=== PATIENT | male | born 1955 | race Caucasian/White ===

== ENCOUNTER 2017-06-19 19:40 | Inpatient (IN) | payer MEDICARE, OTHER ==
[~2017-06-19] VITALS: Ht 167.6 cm; Wt 63.5 kg
[~2017-06-19 19:40] MED LIST: QUET1TAB65 PO
[2017-06-19 19:55] VITALS: BP 173/110; PULSE 61; RESP 18; TEMP 97.8; O2SAT 98
[2017-06-19 20:29] LABS: AUTOMATED NEUTROPHIL # 9.4 TH/MM3 (1.8-7.7); BASOPHIL # 0.1 TH/MM3 (0-0.2); BASOPHIL % 0.6 % (0.0-2.0); EOSINOPHIL # 0.3 TH/MM3 (0-0.4); EOSINOPHIL % 2.4 % (0.0-4.0); HEMATOCRIT 41.7 % (39.0-51.0); HEMO FLAGS DIFF FINAL; LYMPHOCYTE # 2.2 TH/MM3 (1.0-4.8); MEAN CELL VOLUME 89.3 FL (80.0-100.0); MEAN CORPUSCULAR HEMOGLOBIN 29.4 PG (27.0-34.0); MEAN CORPUSCULAR HGB CONC 32.9 % (32.0-36.0); MONO % 5.8 % (0.0-8.0); NEUT % 74.2 % (16.0-70.0); PLATELET COUNT 146 TH/MM3 (150-450); RED BLOOD COUNT 4.67 MIL/MM3 (4.50-5.90); RED CELL DISTRIBUTION WIDTH 13.6 % (11.6-17.2); WHITE BLOOD COUNT 12.7 TH/MM3 (4.0-11.0)
[2017-06-19 20:47] LABS: ANION GAP 3 MEQ/L (5-15); BICARBONATE 30.7 MEQ/L (21.0-32.0); BLOOD UREA NITROGEN 19 MG/DL (7-18); CHLORIDE 106 MEQ/L (98-107); GLOMERULAR FILTRATION RATE 100 ML/MIN (>89); POTASSIUM 4.4 MEQ/L (3.5-5.1); SODIUM (NA) 140 MEQ/L (136-145)
[2017-06-19 20:52] LABS: ALCOHOL LESS THAN 3 MG/DL (0-5)
[2017-06-19] MEDS ORDERED: RISP1 PO (20:56)
[2017-06-19] MEDS ORDERED: LITH150C PO (20:56)
[2017-06-19] MEDS ORDERED: BUSP5TAB PO (20:56)
--- NOTE | 2017-06-19 21:04 | PD ---
HPI Chief Complaint: Psychiatric Symptoms Time Seen by Provider: 20:38 Travel History International Travel<30 days: No Contact w/Intl Traveler<30days: No Traveled to known affect area: No History of Present Illness HPI 62-year-old white male presents to emergency department under [place] act by PD. Patient has a history of bipolar disorder. According to the [place] act the patient was very good becoming agitated and aggressive towards his housemates. PD placed the patient under [place] act. It is unclear whether the patient has been compliant with his medications. The patient here states that he's been taking his medications as directed. He lives in the family's a Estate home. Patient denies any suicidal or homicidal ideation. Patient states that he was upset because they were videotaping him. PFSH Past Medical History Arthritis: Yes (BACK) Asthma: Yes Autoimmune Disease: No Blood Disorders: No Bipolar Disorder: Yes Heart Rhythm Problems: Yes (PT STATES OCCURED WHEN HE HAD A NICOTINE PATCH PUT ON) Cancer: No Cardiovascular Problems: No COPD: No Cerebrovascular Accident: No Diminished Hearing: No Endocrine: No Glaucoma: Yes (BOTH) Genitourinary: No Headaches: No Hepatitis: Yes Immune Disorder: No Musculoskeletal: No Neurologic: No Psychiatric: Yes (SCHIZOPHRENIA) Reproductive: No Respiratory: No Migraines: No Schizophrenia: Yes Seizures: No Sleep Apnea: No Tetanus Vaccination: Unknown Past Surgical History Abdominal Surgery: No AICD: No Arteriovenous Shunt: No Cardiac Surgery: No Cholecystectomy: Yes Ear Surgery: No Endocrine Surgery: No Eye Surgery: No Genitourinary Surgery: No Gynecologic Surgery: No Insulin Pump: No Joint Replacement: No Oral Surgery: No Pacemaker: No Thoracic Surgery: No Social History Alcohol Use: Yes Tobacco Use: Yes Substance Use: Yes Allergies-Medications (Allergen,Severity, Reaction): Coded Allergies: diphenhydramine (Unverified Allergy, Severe, 06/19/17) penicillin G (Unverified Allergy, Severe, 06/19/17) Reported Meds & Prescriptions Reported Meds & Active Scripts Active Reported Risperdal (Risperidone) 1 Mg Tab 1 Mg PO DAILY Buspirone (Buspirone HCl) 5 Mg Tab 5 Mg PO BID [place] Carbonate 150 Mg Cap 150 Mg PO QID Review of Systems General / Constitutional: No: Fever Eyes: No: Visual changes HENT: No: Headaches Cardiovascular: No: Chest Pain or Discomfort Respiratory: No: Shortness of Breath Gastrointestinal: No: Abdominal Pain Genitourinary: No: Dysuria Musculoskeletal: Positive: Arthralgias, No: Pain Skin: No Rash Neurologic: No: Weakness Psychiatric: Positive: Mood Disorder, Substance Abuse, No: Anxiety, Depression , Suicidal Ideations, Disorder of Thought, Homicidal Ideation Endocrine: No: Polydipsia Hematologic/Lymphatic: No: Easy Bruising Physical Exam Narrative GENERAL: Well-nourished, well-developed patient. SKIN: Warm and dry. HEAD: Normocephalic and atraumatic. EYES: No scleral icterus. No injection or drainage. ENT: No nasal drainage noted. Mucous membranes pink. Airway patent. NECK: Supple, trachea midline. Moves head freely without obvious discomfort. CARDIOVASCULAR: Regular rate and rhythm without murmurs, gallops, or rubs. RESPIRATORY: Breath sounds equal bilaterally. No accessory muscle use. GASTROINTESTINAL: Abdomen soft, non-tender, nondistended. EXTREMITIES: No cyanosis or edema. BACK: Nontender without obvious deformity. No CVA tenderness. NEURO: Patient is alert and oriented. no sensorimotor deficits. Nonfocal. Normal speech. PSYCH: No delusions. No auditory or visual hallucinations. Data Data Last Documented VS Vital Signs Date Time Temp Pulse Resp B/P (MAP) Pulse Ox O2 Delivery O2 Flow Rate FiO2 06/19/17 19:55 97.8 61 18 173/110 (131) 98 Room Air Orders Orders Complete Blood Count With Diff (06/19/17 19:54) Basic Metabolic Panel (Bmp) (06/19/17 19:54) Psych Screen (06/19/17 19:54) Drug Screen, Random Urine (06/19/17 19:54) Alcohol (Ethanol) (06/19/17 19:54) [place] (Li) (06/19/17 20:14) Labs Laboratory Tests Test 06/19/17 20:00 White Blood Count 12.7 TH/MM3 Red Blood Count 4.67 MIL/MM3 Hemoglobin 13.7 GM/DL Hematocrit 41.7 % Mean Corpuscular Volume 89.3 FL Mean Corpuscular Hemoglobin 29.4 PG Mean Corpuscular Hemoglobin Concent 32.9 % Red Cell Distribution Width 13.6 % Platelet Count 146 TH/MM3 Mean Platelet Volume 7.8 FL Neutrophils (%) (Auto) 74.2 % Lymphocytes (%) (Auto) 17.0 % Monocytes (%) (Auto) 5.8 % Eosinophils (%) (Auto) 2.4 % Basophils (%) (Auto) 0.6 % Neutrophils # (Auto) 9.4 TH/MM3 Lymphocytes # (Auto) 2.2 TH/MM3 Monocytes # (Auto) 0.7 TH/MM3 Eosinophils # (Auto) 0.3 TH/MM3 Basophils # (Auto) 0.1 TH/MM3 CBC Comment DIFF FINAL Differential Comment Blood Urea Nitrogen 19 MG/DL Creatinine 0.79 MG/DL Random Glucose 102 MG/DL Calcium Level 9.0 MG/DL Sodium Level 140 MEQ/L Potassium Level 4.4 MEQ/L Chloride Level 106 MEQ/L Carbon Dioxide Level 30.7 MEQ/L Anion Gap 3 MEQ/L Estimat Glomerular Filtration Rate 100 ML/MIN Urine Opiates Screen NEG Urine Barbiturates Screen NEG Urine Amphetamines Screen NEG Urine Benzodiazepines Screen NEG [place] Level 0.5 MEQ/L Urine Cocaine Screen NEG Urine Cannabinoids Screen POS Ethyl Alcohol Level LESS THAN 3 MG/DL MDM Medical Decision Making Medical Screen Exam Complete: Yes Emergency Medical Condition: Yes Medical Record Reviewed: Yes Interpretation(s) Laboratory Tests Test 06/19/17 20:00 White Blood Count 12.7 TH/MM3 Red Blood Count 4.67 MIL/MM3 Hemoglobin 13.7 GM/DL Hematocrit 41.7 % Mean Corpuscular Volume 89.3 FL Mean Corpuscular Hemoglobin 29.4 PG Mean Corpuscular Hemoglobin Concent 32.9 % Red Cell Distribution Width 13.6 % Platelet Count 146 TH/MM3 Mean Platelet Volume 7.8 FL Neutrophils (%) (Auto) 74.2 % Lymphocytes (%) (Auto) 17.0 % Monocytes (%) (Auto) 5.8 % Eosinophils (%) (Auto) 2.4 % Basophils (%) (Auto) 0.6 % Neutrophils # (Auto) 9.4 TH/MM3 Lymphocytes # (Auto) 2.2 TH/MM3 Monocytes # (Auto) 0.7 TH/MM3 Eosinophils # (Auto) 0.3 TH/MM3 Basophils # (Auto) 0.1 TH/MM3 CBC Comment DIFF FINAL Differential Comment Blood Urea Nitrogen 19 MG/DL Creatinine 0.79 MG/DL Random Glucose 102 MG/DL Calcium Level 9.0 MG/DL Sodium Level 140 MEQ/L Potassium Level 4.4 MEQ/L Chloride Level 106 MEQ/L Carbon Dioxide Level 30.7 MEQ/L Anion Gap 3 MEQ/L Estimat Glomerular Filtration Rate 100 ML/MIN Urine Opiates Screen NEG Urine Barbiturates Screen NEG Urine Amphetamines Screen NEG Urine Benzodiazepines Screen NEG [facility] Level 0.5 MEQ/L Urine Cocaine Screen NEG Urine Cannabinoids Screen POS Ethyl Alcohol Level LESS THAN 3 MG/DL Differential Diagnosis MDM: High Differential diagnoses: Schizophrenia, schizoaffective disorder, bipolar, anxiety, depression, adjustment reaction, mood disorder NOS, ODD, depressive disorder NOS, dementia, dementia with agitation, psychosis NOS, substance induced mood disorder, DMDD, Asperger syndrome, infection,electrolyte abnormality, malingering. Narrative Course Mental health screening discussed with the patient. Psychiatric screen ordered. The patient has been medically cleared. This is medical clearance for psychiatric admission, bipolar Diagnosis Primary Impression: Medical clearance for psychiatric admission Additional Impression: bipolar Condition: Stable Danny Borjas Jun 19, 2017 21:04
[2017-06-19] MEDS ORDERED: LITH300C2 PO (22:27)
[2017-06-19] MEDS ORDERED: REME15TA PO (22:27)
[2017-06-19] MEDS ORDERED: BUSP15TA PO (22:27)
[2017-06-19] MEDS ORDERED: ALUMINUM/MAGNESIUM/SIMETH 30 ML CUP PO PRN (23:00)
[2017-06-19] MEDS ORDERED: LORazepam 2 MG/ML VIAL IM PRN (23:00)
[2017-06-19] MEDS ORDERED: MAGNESIUM HYDROXIDE SUSP 30 ML CUP PO PRN (23:00)
[2017-06-19 23:37] VITALS: BP 142/63; PULSE 58; RESP 18; O2SAT 97
[2017-06-20 00:32] VITALS: BP 174/81; PULSE 72; RESP 17; TEMP 97.9; O2SAT 97
[2017-06-20 05:49] VITALS: BP 142/70; PULSE 56; RESP 18; TEMP 97.9; O2SAT 97
[2017-06-20] MEDS: LITHIUM CARBONATE 300 MG CAP PO SCH ×2 (08:14→20:47)
[2017-06-20] MEDS: NICOTINE 21 MG/24 HR PATCH T-DERMAL SCH (08:15)
[2017-06-20 09:58] LABS: ANION GAP 6 MEQ/L (5-15); BICARBONATE 26.6 MEQ/L (21.0-32.0); BLOOD UREA NITROGEN 15 MG/DL (7-18); CHLORIDE 106 MEQ/L (98-107); GLOMERULAR FILTRATION RATE 82 ML/MIN (>89); POTASSIUM 4.5 MEQ/L (3.5-5.1); SODIUM (NA) 139 MEQ/L (136-145)
[2017-06-20 10:04] LABS: HDL CHOLESTEROL 49.8 MG/DL (40.0-60.0); LDL CHOLESTEROL 62 MG/DL (0-99)
[2017-06-20] MEDS: ARIPiprazole 5 MG TAB PO SCH (10:15)
--- NOTE | 2017-06-20 11:07 | HHI.HP ---
Provisional Diagnosis Admission Date Jun 19, 2017 at 22:37 Hope I. Polar disorder, manic episode, with psychosis vs disorder affective disorder, bipolar type Hope II. Deferred Hope III. COPD, asthma Hope IV. Poor social and family support Hope V. 45 Certification of Person's Competence To Provide Express and Informed Consent I have personally examined Marcos Christy , a person being served at [facility] [[email or web address]] on, Jun 20, 2017 10:11. Express and informed consent means consent voluntarily given in writing, by a competent person, after sufficient explanation and disclosure of the subject matter involved to enable the person to make a knowing and willful decision without any element of force, fraud, deceit, duress, or other form of constraint or coercion. This person is 18 years of age or older, is not now known to be incompetent to consent to treatment with a guardian advocate, and does not have a health care surrogate or proxy currently making medical treatment decisions. I have found this person to be one of the following: [] Competent to provide express and informed consent, as defined above, for voluntary admission to this facility and is competent to provide express and informed consent for treatment. He/she has the consistent capacity to make well reasoned, willful, and knowing decisions concerning his or her medical or mental health treatment. The person fully and consistently understands the purpose of the admission for examination/placement and is fully capable of personally exercising all rights [place] Incompetent to provide express and informed consent to voluntary admission, and this is incompetent to provide express and informed consent to treatment. The person must be transferred to involuntary status and a petition for a guardian advocate filed with the Circuit Court. [x] Refusing to provide express and informed consent to voluntary admission but is competent to provide express and informed consent for treatment. The person must be discharged or transferred to involuntary status. Form shall be completed within 24 hours of a person's arrival at the receiving facility and filed in the clinical record of each person: 1. Admitted on a voluntary basis 2. Permitted to provide express and informed consent to his/her own treatment 3. Allowed to transfer from involuntary to voluntary status 4. Prior to permitting a person to consent to his or her own treatment after having been previously found incompetent to consent to treatment. History of Present Illness Capacity: Has Capacity HPI The patient is a 62-year-old white man, domiciled alone [facility] in the family estate home, single, unemployed, supported by [facility], with psychiatric history of bipolar disorder, schizoaffective disorder, he has one hospitalization here at [place] in 2006, documentation was reviewed, patient has an established outpatient care with [facility], he is on Keyser 300 mg bid, Buspar 15 and Remeron 15 mg, no significant medical history, who presents to emergency department under [place] act by PD. According to the [place] act the patient was very good becoming agitated and aggressive towards his housemates. PD placed the patient under [place] act. It is unclear whether the patient has been compliant with his medications. The patient here states that he's been taking his medications as directed. The psychiatric evaluation at the beginning the patient is cooperative and calm, he says that he doesn't know exactly the reason he was brought to the hospital. He reports good mood, he says that he is happy today, ever, with the patient speaks up about his emotional and he becomes very labile. However, he denies depressive symptoms, he denies anhedonia, he denies hopelessness, he denies helplessness, he denies worthlessness, he denies problems with appetite, sleep or concentration, he denies homicidal ideation, he denies visual and auditory hallucinations. At some point, with the patient is confronted about documented delusions of being videotaped(in his residence, came agitated, very angry, stated that "you don't work for [facility] and you don't know what is going on with the situation" , and walked out of the room. Patient was oriented 3, no attention deficit, no fluctuation of consciousness. He reports daily use of marihuana, but denies her illicit drugs and alcohol Review of Systems Constitutional: DENIES: Diaphoretic episodes, Fatigue, Fever, Weight gain, Weight loss, Chills, Dizziness, Change in appetite, Night Sweats Endocrine: DENIES: Heat/cold intolerance, Polydipsia, Polyuria, Polyphagia Eyes: DENIES: Blurred vision, Diplopia, Eye inflammation, Eye pain, Vision loss , Photosensitivity, Double Vision Ears, nose, mouth, throat: DENIES: Tinnitus, Hearing loss, Vertigo, Nasal discharge, Oral lesions, Throat pain, Hoarseness, Ear Pain, Running Nose, Epistaxis, Sinus Pain, Toothache, Odynophagia Respiratory: DENIES: Apneas, Cough, Snoring, Wheezing, Hemoptysis, Sputum production, Shortness of breath Cardiovascular: DENIES: Chest pain, Palpitations, Syncope, Dyspnea on Exertion , PND, Lower Extremity Edema, Orthopnea, Claudication Gastrointestinal: DENIES: Abdominal pain, Black stools, Bloody stools, Constipation, Diarrhea, Nausea, Vomiting, Difficulty Swallowing, Anorexia Genitourinary: DENIES: Sexual dysfunction, Urinary frequency, Urinary incontinence, Urgency, Hematuria, Dysuria, Nocturia, Penile Discharge, Testicular Pain, Testicular Swelling Musculoskeletal: DENIES: Joint pain, Muscle aches, Stiffness, Joint Swelling, Back pain, Neck pain Integumentary: DENIES: Abnormal pigmentation, Nail changes, Pruritus, Rash Hematologic/lymphatic: DENIES: Bruising, Lymphadenopathy Immunologic/allergic: DENIES: Eczema, Urticaria Neurologic: DENIES: Abnormal gait, Headache, Localized weakness, Paresthesias, Seizures, Speech Problems, Tremor, Poor Balance Psychiatric: COMPLAINS OF: Mood changes, Agitation, Delusions, DENIES: Anxiety , Confusion, Depression, Hallucinations, Suicidal Ideation, Homicidal Ideation Past Psych History Violence risk - others (6 mos) Increased Substance Abuse History Drugs/Alcohol past 12 months Reports daily use of marijuana, denies the use of other illegal drugs, denies the use of alcohol Past Family Social History Coded Allergies: diphenhydramine (Unverified Allergy, Severe, 06/19/17) penicillin G (Unverified Allergy, Severe, 06/19/17) Reported Medications Mirtazapine (Remeron) 15 Mg Tab, 15 MG PO HS for Depression Control, #15 TAB 0 Refills 06/19/17 Buspirone (Buspirone) 15 Mg Tab, 15 MG PO HS for Anxiety, TAB 0 Refills 06/19/17 Keyser Carbonate (Keyser Carbonate) 300 Mg Cap, 300 MG PO BID, CAP 0 Refills 06/19/17 Discontinued Reported Medications Buspirone (Buspirone) 5 Mg Tab, 5 MG PO BID for Anxiety, TAB 0 Refills 06/19/17 Keyser Carbonate (Keyser Carbonate) 150 Mg Cap, 150 MG PO QID, CAP 0 Refills 06/19/17 Quetiapine Fumarate (Seroquel) 200 Mg Tab, 200 MG PO HS, 0 Refills 09/03/07 Current Medications Medications (Trade) Dose Ordered Sig/Suni Route Start Time Stop Time Status Last Admin (Ativan) 1 mg Q6H PRN PO 06/19/17 23:00 (Ativan Inj) 1 mg Q6H PRN IM 06/19/17 23:00 (Tylenol) 650 mg Q4H PRN PO 06/19/17 23:00 (Milk Of Magnesia Liq) 30 ml DAILY PRN PO 06/19/17 23:00 (Mag-Al Plus Susp Liq) 30 ml Q6H PRN PO 06/19/17 23:00 (Habitrol 21 Mg Patch.24 Hr) 1 patch DAILY T-DERMAL 06/20/17 09:00 Miscellaneous Information 1 HS T-DERMAL 06/20/17 21:00 (Keyser Carbonate) 300 mg BID PO 06/20/17 09:00 06/20/17 08:14 (Buspar) 15 mg HS PO 06/20/17 21:00 (Remeron) 15 mg HS PO 06/20/17 21:00 Family Psych History He denies family psychiatric history Social History Patient was born and raised in [place], he lives in [facility] in a state family home, unemployed, supported by [facility], Patient's Strengths (min. 2) Verbal communication, Established outpatient care in [facility] Physical Exam no tremors, no EPS, No withdrawal, No psychomotor agitation or retardation Vital Signs Vital Signs Date Time Temp Pulse Resp B/P (MAP) Pulse Ox O2 Delivery O2 Flow Rate FiO2 06/20/17 05:49 97.9 56 18 142/70 (94) 97 06/19/17 23:37 Room Air Lab Results Test 06/19/17 20:00 06/20/17 08:52 White Blood Count 12.7 TH/MM3 Red Blood Count 4.67 MIL/MM3 Hemoglobin 13.7 GM/DL Hematocrit 41.7 % Mean Corpuscular Volume 89.3 FL Mean Corpuscular Hemoglobin 29.4 PG Mean Corpuscular Hemoglobin Concent 32.9 % Red Cell Distribution Width 13.6 % Platelet Count 146 TH/MM3 Mean Platelet Volume 7.8 FL Neutrophils (%) (Auto) 74.2 % Lymphocytes (%) (Auto) 17.0 % Monocytes (%) (Auto) 5.8 % Eosinophils (%) (Auto) 2.4 % Basophils (%) (Auto) 0.6 % Neutrophils # (Auto) 9.4 TH/MM3 Lymphocytes # (Auto) 2.2 TH/MM3 Monocytes # (Auto) 0.7 TH/MM3 Eosinophils # (Auto) 0.3 TH/MM3 Basophils # (Auto) 0.1 TH/MM3 CBC Comment DIFF FINAL Differential Comment Blood Urea Nitrogen 19 MG/DL 15 MG/DL Creatinine 0.79 MG/DL 0.94 MG/DL Random Glucose 102 MG/DL 125 MG/DL Calcium Level 9.0 MG/DL 9.2 MG/DL Sodium Level 140 MEQ/L 139 MEQ/L Potassium Level 4.4 MEQ/L 4.5 MEQ/L Chloride Level 106 MEQ/L 106 MEQ/L Carbon Dioxide Level 30.7 MEQ/L 26.6 MEQ/L Anion Gap 3 MEQ/L 6 MEQ/L Estimat Glomerular Filtration Rate 100 ML/MIN 82 ML/MIN Urine Opiates Screen NEG Urine Barbiturates Screen NEG Urine Amphetamines Screen NEG Urine Benzodiazepines Screen NEG Keyser Level 0.5 MEQ/L Urine Cocaine Screen NEG Urine Cannabinoids Screen POS Ethyl Alcohol Level LESS THAN 3 MG/DL Triglycerides Level 72 MG/DL Cholesterol Level 126 MG/DL LDL Cholesterol 62 MG/DL HDL Cholesterol 49.8 MG/DL Cholesterol/HDL Ratio 2.53 RATIO Mental Status Examination Appearance: Appropriate Consciousness: Alert Orientation: x4 Motor Activity: Normal gait Speech: Unremarkable Language: Adequate Fund of Knowledge: Adequate Attention and Concentration: Adequate Memory: Unremarkable Mood: Angry Affect: Irritable Thought Process & Associations: Disorganized Thought Content: Bizarre thinking, Preoccupations, Delusional Hallucination Type: None Delusion Type: None Suicidal Ideation: No Suicidal Plan: No Suicidal Intention: No Homicidal Ideation: No Homicidal Plan: No Homicidal Intention: No Insight: Poor Judgment: Poor Assessment & Plan Problem List: (1) Bipolar disorder with psychotic features ICD Codes: F31.9 - Bipolar disorder, unspecified Assessment & Plan: Patient is acutely psychotic, delusional, paranoid, stating that he has been followed by [facility] authorities, recorded by video camera. He has been very irritable, agitated, at times reportedly aggressive. His lithium levels 0.5 which means that the patient has been most probably compliant with his medications. Patient needs to continue psychiatric admission for stabilization and safety. Will order a psychiatric support for second opinion. Continue BuSpar 50 mg 3 times a day, continue lithium 300 mg twice a day for mood stabilization. Start Abilify 5 mg daily for psychosis and mood stabilization. will order baseline EKG. Collateral information from [facility] still pending in order to clarify diagnosis, psychotropics and baseline. field crop farm worker intervention for psychosocial assessment, individual and group therapy, collateral information and to start a safe discharge planning. Brief supportive psychotherapy, psychoeducation provided. Assessment & Plan Estimated LOS: days Viet Zhang MD Jun 20, 2017 11:07
[2017-06-20] MEDS: LORazepam 1 MG TAB PO PRN (12:19)
[2017-06-20 16:01] LABS: HEMOGLOBIN A1b 1.6 %; HEMOGLOBIN Ao 85.6 %; HEMOGLOBIN LA1C 2.2 %; HEMOGLOBIN P3 3.7 %
[2017-06-20 18:53] VITALS: BP 162/74; PULSE 61; RESP 18; TEMP 98.9; O2SAT 99
[2017-06-20] MEDS: REMOVE OLD NICOTINE PATCH T-DERMAL SCH (20:47)
[2017-06-20] MEDS: busPIRone HCL 10 MG TAB PO SCH (20:47)
[2017-06-20] MEDS: MIRTAZAPINE 15 MG TAB PO SCH (20:47)
[2017-06-21 05:59] VITALS: BP 169/84; PULSE 62; RESP 16; TEMP 98.1; O2SAT 98
[2017-06-21] MEDS: LITHIUM CARBONATE 300 MG CAP PO SCH ×2 (08:46→20:26)
[2017-06-21] MEDS: ARIPiprazole 5 MG TAB PO SCH (08:46)
[2017-06-21] MEDS: NICOTINE 21 MG/24 HR PATCH T-DERMAL SCH (08:53)
--- NOTE | 2017-06-21 10:31 | HHI.PYPN ---
Subjective Remarks Patient was seen today for psychiatric reevaluation, case was discussed with social media project manager Wero and also with nurse in charge. Chart was reviewed. Record fax from [facility] also reviewed. Patient has been running with high blood pressure, hospitalist will be consulted. Today patient is found a recreational area of the unit, the beginning reticent, oppositional, irritable refusing to talk to me. He says that he doesn't want to talk with anybody in the unit "since this people has bacterias that could be transmitted to me". After redirection the patient calm down and open up a little bit. He apologized "for been mean with you now and yesterday". He reports paranoia of people looking at him in the unit. He has been taking his medications, no significant side effects reported. He has been described as an isolated patient, interacting poorly with the staff and peers, but no agitation or aggressive behavior reported. As per documentation faxed form [facility], and carries a diagnosis of bipolar disorder, cocaine and cannabis use disorder, with psychiatric hospitalizations, last hospitalization was in the [place] last November 2016. Mental Status Examination Appearance: Appropriate Consciousness: Alert Orientation: x4 Motor Activity: Normal gait Speech: Unremarkable Language: Adequate Fund of Knowledge: Adequate Attention and Concentration: Adequate Memory: Unremarkable Mood: Angry Affect: Irritable Thought Process & Associations: Disorganized Thought Content: Bizarre thinking, Preoccupations, Delusional Hallucination Type: None Delusion Type: None Suicidal Ideation: No Suicidal Plan: No Suicidal Intention: No Homicidal Ideation: No Homicidal Plan: No Homicidal Intention: No Insight: Poor Judgment: Poor Results Labs Test 06/20/17 13:01 [place] Level 0.3 MEQ/L Vitals/IOs Vital Signs Date Time Temp Pulse Resp B/P (MAP) Pulse Ox O2 Delivery O2 Flow Rate FiO2 06/21/17 05:59 98.1 62 16 169/84 (112) 98 06/19/17 23:37 Room Air Intake and Output 06/21/17 06/21/17 06/22/17 08:00 16:00 00:00 Intake Total 360 ml Balance 360 ml Assessment & Plan Problem List: (1) Bipolar disorder with psychotic features ICD Codes: F31.9 - Bipolar disorder, unspecified Assessment & Plan: Patient continues to be acutely psychotic, very paranoid, delusional, irritable and labile. Increase Abilify 10 mg daily. Since the patient has persistent high blood pressure will consul hospitalist for evaluation. Brief supportive psychotherapy provided. Assessment & Plan Estimated LOS: days Justification for Cont. Inpt. Patient needs to continue psychiatric hospitalization for stabilization and safety. Viet Zhang MD Jun 21, 2017 10:31
[2017-06-21] MEDS ORDERED: cloNIDine HCL 0.1 MG TAB PO PRN (14:15)
[2017-06-21] MEDS ORDERED: LISINOPRIL 10 MG TAB PO ONE (14:15)
--- NOTE | 2017-06-21 15:00 | PD.PSY.CON ---
Provisional Diagnosis Admission Date Jun 19, 2017 at 22:37 [place] I. Polar disorder, manic episode, with psychosis vs disorder affective disorder, bipolar type [place] II. Deferred [place] III. COPD, asthma [place] IV. Poor social and family support [place] V. 45 History of Present Illness Service Psychiatry Consult Requested By Dr. Christine Reason for Consult Second opinion Primary Care Physician Anselmo Pinto D.O. HPI The patient is a 62-year-old white man, domiciled alone [facility] in the family estate home, single, unemployed, supported by [facility], with psychiatric history of bipolar disorder, schizoaffective disorder, he has one hospitalization here at [facility] in 2006, documentation was reviewed, patient has an established outpatient care with [facility], he is on Cleora 300 mg bid, Buspar 15 and Remeron 15 mg, no significant medical history, who presents to emergency department under [place] act by PD. According to the [place] act the patient was very good becoming agitated and aggressive towards his housemates. PD placed the patient under [place] act. It is unclear whether the patient has been compliant with his medications. The patient here states that he's been taking his medications as directed. The psychiatric evaluation at the beginning the patient is cooperative and calm, he says that he doesn't know exactly the reason he was brought to the hospital. He reports good mood, he says that he is happy today, ever, with the patient speaks up about his emotional and he becomes very labile. However, he denies depressive symptoms, he denies anhedonia, he denies hopelessness, he denies helplessness, he denies worthlessness, he denies problems with appetite, sleep or concentration, he denies homicidal ideation, he denies visual and auditory hallucinations. At some point, with the patient is confronted about documented delusions of being videotaped(in his residence, came agitated, very angry, stated that "you don't work for [employer] and you don't know what is going on with the situation" , and walked out of the room. Patient was oriented 3, no attention deficit, no fluctuation of consciousness. He reports daily use of marihuana, but denies her illicit drugs and alcohol 06/21/17 - second opinion Patient is 62-year-old man, domiciled with roommates, with past psychiatric and bipolar disorder, so schizoaffective disorder, 1 previous psychiatric authorization and Rajan was brought to the [place] act by police department and becoming agitated and more aggressive with his roommate. Patient was found walking on the unit was noted to be calm and cooperative interview. Patient states that he believes he is in hospital because they had given him a mostly lives that did not work. Patient noted to have difficulty recalling events prior to his hospitalization noted to be somewhat disorganized during interview and tangential. Patient has been noted to be paranoid on the unit. Patient at this time denies any perceptual disturbances or delusions, states that he's feeling "fine" but did report having been feeling upset due to his current discord with his roommate and his brother recently. Past Family Social History Coded Allergies: diphenhydramine (Unverified Allergy, Severe, 06/19/17) penicillin G (Unverified Allergy, Severe, 06/19/17) Reported Medications Mirtazapine (Remeron) 15 Mg Tab, 15 MG PO HS for Depression Control, #15 TAB 0 Refills 06/19/17 Buspirone (Buspirone) 15 Mg Tab, 15 MG PO HS for Anxiety, TAB 0 Refills 06/19/17 Cleora Carbonate (Cleora Carbonate) 300 Mg Cap, 300 MG PO BID, CAP 0 Refills 06/19/17 Discontinued Reported Medications Buspirone (Buspirone) 5 Mg Tab, 5 MG PO BID for Anxiety, TAB 0 Refills 06/19/17 Cleora Carbonate (Cleora Carbonate) 150 Mg Cap, 150 MG PO QID, CAP 0 Refills 06/19/17 Quetiapine Fumarate (Seroquel) 200 Mg Tab, 200 MG PO HS, 0 Refills 09/03/07 Current Medications Medications (Trade) Dose Ordered Sig/Suni Route Start Time Stop Time Status Last Admin (Ativan) 1 mg Q6H PRN PO 06/19/17 23:00 06/20/17 12:19 (Ativan Inj) 1 mg Q6H PRN IM 06/19/17 23:00 (Tylenol) 650 mg Q4H PRN PO 06/19/17 23:00 (Milk Of Magnesia Liq) 30 ml DAILY PRN PO 06/19/17 23:00 (Mag-Al Plus Susp Liq) 30 ml Q6H PRN PO 06/19/17 23:00 (Habitrol 21 Mg Patch.24 Hr) 1 patch DAILY T-DERMAL 06/20/17 09:00 06/21/17 08:53 Miscellaneous Information 1 HS T-DERMAL 06/20/17 21:00 (Cleora Carbonate) 300 mg BID PO 06/20/17 09:00 06/21/17 08:46 (Buspar) 15 mg HS PO 06/20/17 21:00 06/20/17 20:47 (Remeron) 15 mg HS PO 06/20/17 21:00 06/20/17 20:47 (Abilify) 10 mg DAILY PO 06/22/17 09:00 (Catapres) 0.1 mg Q6H PRN PO 06/21/17 14:15 UNV (Prinivil) 10 mg ONCE ONCE PO 06/21/17 14:15 06/21/17 14:16 UNV (Prinivil) 10 mg DAILY PO 06/22/17 09:00 UNV Patient's Strengths (min. 2) Verbal communication, Established outpatient care in [facility] Physical Exam Vital Signs Vital Signs Date Time Temp Pulse Resp B/P (MAP) Pulse Ox O2 Delivery O2 Flow Rate FiO2 06/21/17 05:59 98.1 62 16 169/84 (112) 98 06/19/17 23:37 Room Air I/O 06/21/17 06/21/17 06/22/17 08:00 16:00 00:00 Intake Total 720 ml Balance 720 ml Mental Status Examination Appearance: Appropriate Consciousness: Alert Orientation: x4 Motor Activity: Normal gait Speech: Unremarkable Language: Adequate Fund of Knowledge: Adequate Attention and Concentration: Adequate Memory: Unremarkable Mood: Angry Affect: Irritable Thought Process & Associations: Disorganized Thought Content: Bizarre thinking, Preoccupations, Delusional Hallucination Type: None Delusion Type: None Suicidal Ideation: No Suicidal Plan: No Suicidal Intention: No Homicidal Ideation: No Homicidal Plan: No Homicidal Intention: No Insight: Poor Judgment: Poor Assessment & Plan Problem List: (1) Bipolar disorder with psychotic features ICD Codes: F31.9 - Bipolar disorder, unspecified Assessment & Plan I have seen and examined this patient, reviewed the documentation, and I agree and concur with Dr. Christine assessment and plan. Consult appreciated. Mario Hayden MD Jun 21, 2017 15:00
[2017-06-21 17:30] VITALS: BP 140/60; PULSE 76; RESP 16; TEMP 98.3; O2SAT 97
--- NOTE | 2017-06-21 19:47 | PD.CONS ---
HPI Service [facility] Consult Requested By Primary Care Physician Anselmo Pinto D.O. Diagnoses: History of Present Illness Mr. Christy is a 62 year old male. He has been admitted for Psychosis with underlying bipolar disorder. He has HTN, but has no treatments for this. Presently his BP is not under control. He will need treatment for control based on trends thus far. COPD and Hepatitis C are also present, he continues to smoke, 2ppd. At baseline he reports that he does not have episodes of dyspnea and does not have exacerbations of his COPD, despite not taking treatments for this. No other complaints today. He feels well. No nausea. No chest pain. Review of Systems Constitutional: DENIES: Fatigue, Fever, Chills, Night Sweats Eyes: DENIES: Blurred vision, Diplopia, Eye inflammation Ears, nose, mouth, throat: DENIES: Tinnitus, Hearing loss, Vertigo, Nasal discharge Respiratory: DENIES: Apneas, Cough, Snoring, Wheezing, Shortness of breath Cardiovascular: DENIES: Chest pain, Palpitations, Syncope Gastrointestinal: DENIES: Abdominal pain, Black stools, Bloody stools, Constipation Musculoskeletal: DENIES: Joint pain, Muscle aches, Stiffness, Joint Swelling Integumentary: DENIES: Abnormal pigmentation, Nail changes, Pruritus, Rash Hematologic/lymphatic: DENIES: Bruising, Lymphadenopathy Immunologic/allergic: DENIES: Eczema, Urticaria Neurologic: DENIES: Abnormal gait, Headache, Paresthesias Psychiatric: DENIES: Anxiety, Confusion, Hallucinations Past Family Social History Allergies: Coded Allergies: diphenhydramine (Unverified Allergy, Severe, 06/19/17) penicillin G (Unverified Allergy, Severe, 06/19/17) Past Medical History COPD Hepatitis C HTN Past Surgical History None Reported Medications Reported Meds & Active Scripts Active Reported Remeron (Mirtazapine) 15 Mg Tab 15 Mg PO HS Buspirone (Buspirone HCl) 15 Mg Tab 15 Mg PO HS [place] Carbonate 300 Mg Cap 300 Mg PO BID Active Ordered Medications Administered Medications Medications (Trade) Dose Ordered Sig/Suni Route PRN Reason Start Time Stop Time Status Last Admin Dose Admin Lorazepam (Ativan) 1 mg Q6H PRN PO MODERATE TO SEVERE ANXIETY 06/19/17 23:00 06/20/17 12:19 Nicotine (Habitrol 21 Mg Patch.24 Hr) 1 patch DAILY T-DERMAL 06/20/17 09:00 06/21/17 08:53 [place] Carbonate ([place] Carbonate) 300 mg BID PO 06/20/17 09:00 06/21/17 08:46 Buspirone HCl (Buspar) 15 mg HS PO 06/20/17 21:00 06/20/17 20:47 Mirtazapine (Remeron) 15 mg HS PO 06/20/17 21:00 06/20/17 20:47 Family History None Healthy mother Unknown history in father Social History No alcohol abuse No illicit drug abuse Patient reports he smokes about 2ppd, cigarettes Physical Exam Vital Signs Vital Signs Date Time Temp Pulse Resp B/P (MAP) Pulse Ox O2 Delivery O2 Flow Rate FiO2 06/21/17 17:30 98.3 76 16 140/60 (86) 97 06/21/17 05:59 98.1 62 16 169/84 (112) 98 Physical Exam GENERAL: A&Ox2 SKIN: Warm and dry. HEAD: Normocephalic. EYES: No scleral icterus. No injection or drainage. NECK: Supple, trachea midline. No JVD or lymphadenopathy. CARDIOVASCULAR: Regular rate and rhythm without murmurs, gallops, or rubs. RESPIRATORY: Breath sounds equal bilaterally. No accessory muscle use. GASTROINTESTINAL: Abdomen soft, non-tender, nondistended. MUSCULOSKELETAL: No cyanosis, or edema. BACK: Nontender without obvious deformity. No CVA tenderness. Result Diagram: 06/19/17199906/20/17 0852 Assessment and Plan Problem List: (1) Bipolar disorder with psychotic features ICD Code: F31.9 - Bipolar disorder, unspecified Assessment and Plan Assessment and Plan Psychosis Bipolar Disorder Treatment per psychiatry HTN Uncontrolled Follow BP Lisinopril started PRN Clonidine Adjust as needed for control We will continue to follow this until controlled COPD No exacerbation Patient reports he is functional at baseline Hepatitis C Standard precautions No need for isolation No need for work up Outpatient management Nicotine Dependence Patient declines NicoDerm patch Counseled to quit smoking Delio Hernandez MD Jun 21, 2017 19:47
[2017-06-21] MEDS: MIRTAZAPINE 15 MG TAB PO SCH (20:26)
[2017-06-21] MEDS: busPIRone HCL 10 MG TAB PO SCH (20:26)
[2017-06-21] MEDS: REMOVE OLD NICOTINE PATCH T-DERMAL SCH (20:27)
[2017-06-22] MEDS: LORazepam 1 MG TAB PO PRN ×2 (03:49→20:25)
[2017-06-22] MEDS: ACETAMINOPHEN 325 MG TAB PO PRN ×2 (03:49→20:26)
[2017-06-22 05:38] VITALS: BP 164/77; PULSE 69; RESP 16; TEMP 98.2; O2SAT 96
[2017-06-22] MEDS: LITHIUM CARBONATE 300 MG CAP PO SCH (08:48)
[2017-06-22] MEDS: ARIPiprazole 5 MG TAB PO SCH (08:48)
[2017-06-22] MEDS: NICOTINE 21 MG/24 HR PATCH T-DERMAL SCH (08:52)
[2017-06-22] MEDS: LISINOPRIL 20 MG TAB PO SCH (09:00)
[2017-06-22] MEDS ORDERED: LISINOPRIL 10 MG TAB PO SCH (09:00)
--- NOTE | 2017-06-22 11:28 | HHI.PYPN ---
Subjective Remarks Patient was seen today for psychiatric reevaluation. Chart reviewed. Case discussed with nurse in charge and also with group social worker Wero. On psychiatric evaluation patient is found having his breakfast in the recreational area of the unit. The patient is calm, cooperative, pleasant. He reports feeling much better, good mood, he seems to be in a very good spirited. He denies suicidal and homicidal ideation, he denies visual and auditory hallucinations. He denies paranoia, and he reports feeling safe in the unit. However, nurse in charge reported that the patient just today was a little bit agitated, and sexually inappropriate with another patient and at some point verbally hostile. He did not need ETO's, he was the escalated verbally. He has been compliant with medications, no significant side effects reported. I called Efra Christy, patient's brother, for Collateral information, who is states that in his opinion the patient was not given the right prescriptions he his last hospitalization, or maybe he was given medication that interfered with lithium. He described his brother as a very compliant patient, no aggressive, no usually problematic. He feels safe, to the hospital and picking his brother up taking him back to his apartment once he is psychiatrically clear. He will make sure that the patient take his medications and go to his appointment, he clarifies that the patient always is compliant with medication and appointments. Review of Systems Except as stated in HPI: all other systems reviewed are Neg Mental Status Examination Appearance: Appropriate Consciousness: Alert Orientation: x4 Motor Activity: Normal gait Speech: Unremarkable Language: Adequate Fund of Knowledge: Adequate Attention and Concentration: Adequate Memory: Unremarkable Mood: Appropriate, Angry Affect: Appropriate Thought Process & Associations: Disorganized Thought Content: Bizarre thinking, Preoccupations, Delusional Hallucination Type: None Delusion Type: None Suicidal Ideation: No Suicidal Plan: No Suicidal Intention: No Homicidal Ideation: No Homicidal Plan: No Homicidal Intention: No Insight: Fair Judgment: Impulsive Results Vitals/IOs Vital Signs Date Time Temp Pulse Resp B/P (MAP) Pulse Ox O2 Delivery O2 Flow Rate FiO2 06/22/17 05:38 98.2 69 16 164/77 (106) 96 06/19/17 23:37 Room Air Assessment & Plan Problem List: (1) Bipolar disorder with psychotic features ICD Codes: F31.9 - Bipolar disorder, unspecified Assessment & Plan: Increase lithium to 450 mg twice a day to achieve therapeutic levels. Will order a lithium level tomorrow morning. Patient has been responding positively to current psychotropic regimen. Episodes of agitation, disorganization and inappropriate behavior reported. I have spoken with his brother who will come to pick him up personally once medically a psychiatric stable. Brief supportive psychotherapy provided. Assessment & Plan Estimated LOS: days Justification for Cont. Inpt. He still remains psychotic, and needs to continue his psychiatric hospitalization for stabilization and safety. Viet Zhang MD Jun 22, 2017 11:28
[2017-06-22 17:09] VITALS: BP 123/76; PULSE 61; RESP 18; TEMP 98; O2SAT 97
[2017-06-22] MEDS: LITHIUM CARBONATE 450 MG CONTROLLED RELEASE TAB PO SCH (20:27)
[2017-06-22] MEDS: MIRTAZAPINE 15 MG TAB PO SCH (20:28)
[2017-06-22] MEDS: REMOVE OLD NICOTINE PATCH T-DERMAL SCH (20:28)
[2017-06-22] MEDS: busPIRone HCL 10 MG TAB PO SCH (20:28)
[2017-06-23 06:09] VITALS: BP 156/87; PULSE 69; RESP 16; TEMP 97.4; O2SAT 97
[2017-06-23] MEDS: ARIPiprazole 5 MG TAB PO SCH (09:13)
[2017-06-23] MEDS: LISINOPRIL 20 MG TAB PO SCH (09:13)
[2017-06-23] MEDS: LITHIUM CARBONATE 450 MG CONTROLLED RELEASE TAB PO SCH (09:14)
[2017-06-23] MEDS: NICOTINE 21 MG/24 HR PATCH T-DERMAL SCH (09:14)
[2017-06-23] MEDS ORDERED: LITH450T PO (09:15)
[2017-06-23] MEDS ORDERED: BUSP15TA PO (09:15)
[2017-06-23] MEDS ORDERED: REME15TA PO (09:15)
[2017-06-23] MEDS ORDERED: ARIP1TAB11 PO (09:15)
--- NOTE | 2017-06-23 09:17 | HHI.DS ---
Psychiatry Discharge Summary Inpatient Psychiatric care?: Yes Advance Directive: No Reason Not Provided: DENIES Mental Health AdvanceDirective: No Health Care Proxy: Yes Admission Admission Date Jun 19, 2017 at 22:37 Admission Diagnosis: (1) Bipolar disorder with psychotic features ICD Code: F31.9 - Bipolar disorder, unspecified Brief History The patient is a 62-year-old white man, domiciled alone [facility] in the family estate home, single, unemployed, supported by [facility], with psychiatric history of bipolar disorder, schizoaffective disorder, he has one hospitalization here at [facility] in 2006, documentation was reviewed, patient has an established outpatient care with [facility], he is on [place] 300 mg bid, Buspar 15 and Remeron 15 mg, no significant medical history, who presents to emergency department under [place] act by PD. According to the [place] act the patient was very good becoming agitated and aggressive towards his housemates. PD placed the patient under [place] act. It is unclear whether the patient has been compliant with his medications. The patient here states that he's been taking his medications as directed. The psychiatric evaluation at the beginning the patient is cooperative and calm, he says that he doesn't know exactly the reason he was brought to the hospital. He reports good mood, he says that he is happy today, ever, with the patient speaks up about his emotional and he becomes very labile. However, he denies depressive symptoms, he denies anhedonia, he denies hopelessness, he denies helplessness, he denies worthlessness, he denies problems with appetite, sleep or concentration, he denies homicidal ideation, he denies visual and auditory hallucinations. At some point, with the patient is confronted about documented delusions of being videotaped(in his residence, came agitated, very angry, stated that "you don't work for [facility] [facility] [employer] [facility] [employer] and you don't know what is going on with the situation" , and walked out of the room. Patient was oriented 3, no attention deficit, no fluctuation of consciousness. He reports daily use of marihuana, but denies her illicit drugs and alcohol 06/21/17 - second opinion Patient is 62-year-old man, domiciled with roommates, with past psychiatric and bipolar disorder, so schizoaffective disorder, 1 previous psychiatric authorization and [facility] was brought to the [place] act by police department and becoming agitated and more aggressive with his roommate. Patient was found walking on the unit was noted to be calm and cooperative interview. Patient states that he believes he is in hospital because they had given him a mostly lives that did not work. Patient noted to have difficulty recalling events prior to his hospitalization noted to be somewhat disorganized during interview and tangential. Patient has been noted to be paranoid on the unit. Patient at this time denies any perceptual disturbances or delusions, states that he's feeling "fine" but did report having been feeling upset due to his current discord with his roommate and his brother recently. Tobacco Use In Past 30 Days: 5 or More Cigarettes/Day Alcohol Use: 2-3 Times Per Week Hospital Course the patient was admitted in the psychiatric unit due to increased paranoia, irritability and disorganized behavior. Psychosocial and psychiatric assessment were completed, safety measures taken. Chart was reviewed, case was discussed with counseling and nurses in charge. Patient was restarted in his outpatient medications, lithium, Remeron and BuSpar. Since the patient had therapeutic lithium levels and his brother stated that he was fully compliant with medications, I added Abilify 5 mg daily to help with psychosis. Patient showed good response to psychotropic regimen. Medication was titrated up as patient needed. During his hospitalization the patient at times was irritable, agitated, verbally hostile, but easily redirectable. He was compliant with his medications, without any significant side effects. I spoke by phone with his brother Efra a couple of times in order to learn about patient baseline and to coordinating a safe discharge. Patient was widely educated about the importance of avoiding illegal drugs. At the moment of discharge patient is a baseline, denies depression, denies anxiety, denies jose angel and psychosis. Denies suicidal and homicidal ideation, denies visual and auditory hallucinations. Results Blood Pressure 156 / 87 Vital Signs Date Time Temp Pulse Resp B/P (MAP) Pulse Ox O2 Delivery O2 Flow Rate FiO2 06/23/17 06:09 97.4 69 16 156/87 (110) 97 06/19/17 23:37 Room Air Laboratory Tests Test 06/20/17 13:01 [place] Level 0.3 MEQ/L (0.5-1.5) Laboratory Results Test 06/20/17 08:52 06/20/17 13:01 Cholesterol Level 126 MG/DL (120-200) HDL Cholesterol 49.8 MG/DL (40.0-60.0) Hemoglobin A1c 5.3 % (4.3-6.0) LDL Cholesterol 62 MG/DL (0-99) Triglycerides Level 72 MG/DL (42-150) [place] Level 0.3 MEQ/L (0.5-1.5) Summary of Procedures None Pending results at discharge: No Medications # of Antipsychotic meds at D/C: 1 Approp Antipsych med options 1 - Minimum of three failed multiple trials of monotherapy. 2 - Documented plan to taper to monotherapy due to previous use of multiple meds OR cross-taper in progress at D/C. 3 - Documentation of augmentation of Clozapine. 4 - Justification other than those listed in allowable values 1-3, document here : Discharge Discharge Date: Jun 23, 2017 Discharge Diagnosis: (1) Bipolar disorder with psychotic features ICD Code: F31.9 - Bipolar disorder, unspecified Pt Condition on Discharge: Stable Discharge Disposition: Discharge Home Discharge Instructions Diet Instructions: Heart Healthy Diet Activities you can perform: Regular-No Restrictions Scheduled Appointment: Mario Renee Discharge Time > 30 minutes Mental Status Examination Appearance: Appropriate Consciousness: Alert Orientation: x4 Motor Activity: Normal gait Speech: Unremarkable Language: Adequate Fund of Knowledge: Adequate Attention and Concentration: Adequate Memory: Unremarkable Mood: Appropriate, Angry Affect: Appropriate Thought Process & Associations: Disorganized Thought Content: Bizarre thinking, Preoccupations, Delusional Hallucination Type: None Delusion Type: None Suicidal Ideation: No Suicidal Plan: No Suicidal Intention: No Homicidal Ideation: No Homicidal Plan: No Homicidal Intention: No Insight: Fair Judgment: Impulsive Discharge/Advance Care Plan Health Problems: (1) Bipolar disorder with psychotic features Goals to promote your health * To prevent worsening of your condition and complications * To maintain your health at the optimal level Directions to meet your goals Take your medications as prescribed Follow your dietary instruction Follow activity as directed Keep your appointments as scheduled Take your immunizations and boosters as scheduled If your symptoms worsen call your PCP, if no PCP go to Urgent Care Center or Emergency Room For 31/01 questions related to your inpatient stay or results of tests pending at discharge, please contact Dr. Viet Zhang at Smoking is Dangerous to Your Health. Avoid second hand smoking Viet Zhang MD Jun 23, 2017 09:17
[2017-06-23] MEDS ORDERED: NICO21DI25 T-DERMAL (11:09)
[2017-06-23] MEDS ORDERED: LISI-515 PO (11:09)
--- NOTE | 2017-06-23 11:12 | HHI.PR ---
Subjective Remarks Follow up on patient with HTN. Patient seen and examined. No fever, chills, dizziness, lightheadedness, vision changes, palpitations, chest pain or shortness of breath. Nicotine cravings are controlled with nicotine patch. Patient denies any other medical complaints. Discussed with nursing staff, no acute issues noted. Objective Vitals Vital Signs Date Time Temp Pulse Resp B/P (MAP) Pulse Ox O2 Delivery O2 Flow Rate FiO2 06/23/17 06:09 97.4 69 16 156/87 (110) 97 06/22/17 17:09 98.0 61 18 123/76 (92) 97 Result Diagram: 06/19/17199906/20/17 0852 Objective Remarks GENERAL: Well-nourished, well-developed patient in NAD. Awake and alert. SKIN: Warm and dry. No rash. HEAD: Normocephalic. Atraumatic. EYES: EOMI. No scleral icterus. No injection or drainage. ENT: No nasal bleeding or discharge. Mucous membranes pink and moist. NECK: Trachea midline. CARDIOVASCULAR: Regular rate and rhythm. S1, S2 noted. No murmur appreciated. RESPIRATORY: Nonlabored. Clear to auscultation with fair air entry. Breath sounds equal bilaterally. GASTROINTESTINAL: Abdomen soft, non-tender, nondistended. Normoactive bowel sounds x4. MUSCULOSKELETAL: No obvious deformities. Extremities without clubbing, cyanosis , or edema. NEUROLOGICAL: Awake and alert. Able to move all extremities spontaneously. Nonfocal. Normal speech. PSYCHIATRIC: Appropriate mood and affect; calm, pleasant. Medications and IVs Current Medications Medications (Trade) Dose Ordered Sig/Suni Route Start Time Stop Time Status Last Admin (Ativan) 1 mg Q6H PRN PO 06/19/17 23:00 06/22/17 20:25 (Ativan Inj) 1 mg Q6H PRN IM 06/19/17 23:00 (Tylenol) 650 mg Q4H PRN PO 06/19/17 23:00 06/22/17 20:26 (Milk Of Magnesia Liq) 30 ml DAILY PRN PO 06/19/17 23:00 (Mag-Al Plus Susp Liq) 30 ml Q6H PRN PO 06/19/17 23:00 (Habitrol 21 Mg Patch.24 Hr) 1 patch DAILY T-DERMAL 06/20/17 09:00 06/23/17 09:14 Miscellaneous Information 1 HS T-DERMAL 06/20/17 21:00 (Buspar) 15 mg HS PO 06/20/17 21:00 06/22/17 20:28 (Remeron) 15 mg HS PO 06/20/17 21:00 06/22/17 20:28 (Abilify) 10 mg DAILY PO 06/22/17 09:00 06/23/17 09:13 (Catapres) 0.1 mg Q6H PRN PO 06/21/17 14:15 (Prinivil) 20 mg DAILY PO 06/22/17 09:00 06/23/17 09:13 (Eskalith Sr) 450 mg BID PO 06/22/17 21:00 06/23/17 09:14 A/P Problem List: (1) Bipolar disorder with psychotic features ICD Code: F31.9 - Bipolar disorder, unspecified Assessment and Plan Psychosis Bipolar Disorder Treatment per psychiatry HTN better controlled Continue on increased dose of Lisinopril 20mg daily PRN Clonidine Adjust as needed for control COPD No exacerbation Patient reports he is functional at baseline Hepatitis C Standard precautions No need for isolation No need for work up Outpatient management Nicotine Dependence Continue nicotine patch Counseled to quit smoking Marijuana use UDS positive for cannabis Discussed cessation Homa Martell Jun 23, 2017 11:12
== END 2017-06-23 13:00 | disposition home or self-care (01) | DRG 885 ==
LOC: NEPJ 19:40 → NEDA 22:37 → H270 06-20 00:10
PROVIDERS: ADMIT Psychiatry & Neurology Psychiatry; ATTEND Psychiatry & Neurology Psychiatry
DX: F31.9 Bipolar disorder, unspecified (principal); I10 Essential (primary) hypertension; F12.90 Cannabis use, unspecified, uncomplicated; J44.9 Chronic obstructive pulmonary disease, unspecified; F17.210 Nicotine dependence, cigarettes, uncomplicated; B19.20 Unspecified viral hepatitis C without hepatic coma
CPT/HCPCS: 80048; 80061; 80178; 80307; 83036; 85025; 99285